=== PATIENT | male | born 1965 | race Two or more races ===

== ENCOUNTER 2020-10-15 04:22 | Emergency (ER) | payer MEDICAID ==
[~2020-10-15] VITALS: Ht 188 cm; Wt 122.5 kg
[2020-10-15 05:46] LABS: Basophils # (auto) 0.1 10 ^3/uL (0-0.2); Basophils % (auto) 0.7 % (0.0-2.0); Eosinophils # (auto) 0 10 ^3/uL (0-0.8); Eosinophils % (auto) 0.4 % (0.0-7.0); Hematocrit 41.9 % (41.0-53.0); Hemoglobin 13.5 g/dL (13.5-17.5); Lymphocytes # (auto) 1.9 10 ^3/uL (0.4-5.4); Mean Corpuscular Hgb Conc. 32.3 g/dL (32.0-36.0); Mean Corpuscular Volume 89.9 fL (80.0-100.0); Monocytes % (auto) 9.7 % (0.0-12.0); Neutrophils % (auto) 70.2 % (37.0-80.0); Platelet Count (auto) 222 10^3/uL (140-450); Red Blood Cells 4.66 10^6/uL (4.5-5.90); Red Cell Distribution Width 16.9 % (11.8-14.3)
[2020-10-15 06:04] LABS: Anion Gap 3 (5-15); Blood Urea Nitrogen 22 mg/dL (7-18); Calcium 8.1 mg/dL (8.5-10.1); Carbon Dioxide 31 mmol/L (21-32); Chloride 104 mmol/L (98-107); Glucose 105 mg/dL (74-106); Magnesium 2.2 mg/dL (1.6-2.6); Potassium 3.3 mmol/L (3.5-5.1); Sodium 138 mmol/L (136-145)
[2020-10-15 06:09] LABS: Alanine Aminotransferase 28 U/L (16-61); Alkaline Phosphatase 55 U/L (45-117); Aspartate Aminotransferase 49 U/L (15-37); BUN/Creatinine Ratio 18.8; Bilirubin, Total 1.4 mg/dL (0.2-1.0); GFR African American 83 mL/min; GFR Non-African American 69 mL/min; Total Protein 8.4 g/dL (6.4-8.2)
[2020-10-15] MEDS ORDERED: AZITHROMYCIN 500MG/ 250ML 250 ML IV ONE (08:00)
[2020-10-15] MEDS ORDERED: cefTRIAXone 1GM/50ML D5W 50 ML IV ONE (08:00)
[2020-10-15 08:48] LABS: INR 1.14 (0.9-1.15); Partial Thromboplastin Time 26.8 sec (23.0-31.2)
[2020-10-15 08:53] VITALS: BP 138/98
== END 2020-10-15 08:42 | disposition left against medical advice (07) ==
LOC: EDBD 04:22 → ER 04:22
DX: J18.9 Pneumonia, unspecified organism (principal); G93.41 Metabolic encephalopathy; E87.6 Hypokalemia; F17.210 Nicotine dependence, cigarettes, uncomplicated; Z20.822 Contact with and (suspected) exposure to COVID-19
CPT/HCPCS: 36415; 70450; 71045; 74176; 80053; 83735; 83880; 84484; 85025; 85379; 85610; 85730; 87426; 93005; 96365; 96368; 99291; J0456; J0696